=== PATIENT | female | born 1950 | race Caucasian/White ===

== ENCOUNTER → 2016-09-02 | Outpatient (CLI) | payer MEDICARE ==
--- NOTE | 2016-09-02 14:12 | BD ---
EXAMINATION TYPE: MG DEXA axial skeleton. DATE OF EXAM: 09/02/2016 1:18 PM COMPARISON: Prior DEXA bone scan August 20, 2012. CLINICAL HISTORY: OSTEOPENIA, postmenopausal female Height: 5'4 1/2 Weight: 134 FRAX RISK QUESTIONS: Alcohol (3 or more units per day): no Family History (Parent hip fracture): no Glucocorticoids (More than 3mos): yes (Ex: prednisone, prednisolone, methylprednisolone, dexamethasone, and hydrocortisone). History of Fracture in Adulthood: no Secondary Osteoporosis: 1. Type 1 Diabetes: no 2. Hyperthyroidism: no 3. Menopause before 45: no 4. Malnutrition: no 5. Chronic liver disease: no Rheumatoid Arthritis: no Current Tobacco Use: no RISK FACTORS HISTORY OF: Family History of Osteoporosis: yes Postmenopausal woman: MEDICATIONS: Prednisone or other steroids: How Lon months Additional Medications: asthma, Singulair, zyrtec resatisis Additional History: osteopenia EXAM MEASUREMENTS: Bone mineral densitometry was performed using the [employer] System. Bone mineral density as measured about the Lumbar spine is: ----- L1-L4(G/cm2): 0.969 T Score Values are as follows: ----- L2: -1.5 ----- L3: -2.2 ----- L4: -1.4 ----- L1-L4: -1.8 Bone mineral density has: Increased 0.5% since study of: 08/20/2012 Bone mineral density about the R hip (g/cm2): 0.732 Bone mineral density about the L hip (g/cm2): 0.704 T Score values are as follows: -----R Neck: -2.2 -----L Neck: -2.4 -----R Intertrochanter: -1.9 -----L Intertrochanter: -2.5 Bone mineral density has: Decreased -4.7% since study of: 08/20/2012 IMPRESSION: Osteopenia (T Score between -2.5 and -1 as noted by T score values: Redemonstrated in the low back an d both hips. Bone density slightly decreased or diminished in hips from prior study. There is slightl y increased risk of fracture and the patient may be considered for treatment. Re-Screen 1-2 years. NOTE: T-SCORE=SD OF THE YOUNG ADULT MEAN.
== END | disposition home or self-care (01) ==
LOC: RADBDWWP 12:46
PROVIDERS: ATTEND Obstetrics & Gynecology
DX: M85.80 Other specified disorders of bone density and structure, unspecified site (principal)
CPT/HCPCS: 77080

== ENCOUNTER 2017-10-15 09:14 | Day surgery (SDC) | payer MEDICARE ==
[2017-10-13 11:36] VITALS: BMI 22.8
[~2017-10-15 09:14] MED LIST: LACTATED RINGERS 1,000 ML IV SCH; LIDOCAINE 1% 20 ML VIAL (10MG/ML) FOR IV START INTRADERMA PRN
[2017-10-15 10:10] VITALS: TEMP 97.7
[2017-10-15] MEDS ORDERED: LIDOCAINE 1% 20 ML VIAL (10MG/ML) FOR IV START INTRADERMA ONE (10:17)
[2017-10-15] MEDS ORDERED: fentaNYL (PF) 50 MCG/ML 2 ML AMP ONE (10:47)
[2017-10-15] MEDS ORDERED: PROPOFOL 10 MG/ML 20 ML VIAL IV ONE (10:47)
[2017-10-15] MEDS ORDERED: LIDOCAINE 1% INJ 10MG/ML (20 ML MDV) ONE (10:47)
--- NOTE | 2017-10-15 11:18 | P.PCN ---
Date of Procedure: 10/15/17 Procedure(s) Performed: Procedure: Esophagogastroduodenoscopy and biopsy. Preoperative diagnosis: Shortness of breath and possible reflux disease. Postoperative diagnosis: 1. Small sliding hiatal hernia with no obvious esophagitis or complicated reflux disease. 2. Minimal antral gastritis and duodenitis. 3. Multiple biopsies obtained from the duodenum, antrum and esophagus. Preparation and sedation: Was provided by anesthesia. Brief clinical history: The patient is a 67-year-old female who is scheduled for this evaluation for the above reasons. The patient was evaluated in the office last month for possible GERD. She reported shortness of breath since the summer of 2015 and gurgling sensation in her throat and shortness of breath most recently when she eats or drink water. She also reported epigastric pain and occasional difficulty swallowing. No other alarm symptoms. The patient had cardiac evaluation in addition to her pulmonary evaluation before we proceeded with this exam today. Procedure: With the patient on her left lateral decubitus position and after informed consent and adequate sedation, I passed the Olympus-GIF 160 video upper endoscope through the cricopharyngeus down the esophagus. GE junction was around 40-41 cm from the incisors and there was a small sliding hiatal hernia. The esophagus did not show any obvious erosions, ulcers, strictures or Watts's esophagus. The endoscope was then passed into the stomach which was insufflated with air and inspected in detail including the retroflex view in the cardia. There was minimal mottling and erythema in the antrum but no ulcers or erosions. Pyloric channel did not show any ulcers. Duodenal bulb showed some erythema and minimal friability. Post bulbar area and descending duodenum appeared within normal limits. Because of her symptoms, I obtained biopsies from the duodenum, antrum and esophagus then the endoscope was withdrawn. The patient tolerated the procedure well. Plan: The patient was reassured. She will follow-up with you as planned. Will await pathology results and make further recommendations based on her course and biopsy results. I will keep you updated on her progress.
[2017-10-15 11:39] VITALS: BP 110/58; PULSE 55; RESP 16
== END 2017-10-15 11:58 | disposition home or self-care (01) ==
LOC: ORWHC2ENDO 09:14
DX: K29.50 Unspecified chronic gastritis without bleeding (principal); K44.9 Diaphragmatic hernia without obstruction or gangrene; K29.80 Duodenitis without bleeding; J45.909 Unspecified asthma, uncomplicated; K21.0 Gastro-esophageal reflux disease with esophagitis; Z79.83 Long term (current) use of bisphosphonates; Z79.899 Other long term (current) drug therapy
CPT/HCPCS: 88305; 43239; J2001; J3010; J2704

== ENCOUNTER → 2018-06-02 | Outpatient (CLI) | payer MEDICARE ==
--- NOTE | 2018-06-03 10:20 | MM ---
Reason for exam: screening (asymptomatic). Last mammogram was performed 2 years ago. History: Patient is postmenopausal. Benign left mammotome panel of the left breast, July 25, 2010. Benign right mammotome panel of the right breast, April 10, 2006. Benign excisional biopsy of the right breast, July 08, 2001. Took hormonal contraceptives for 8 years beginning at age 20. Physical Findings: A clinical breast exam by your physician is recommended on an annual basis and results should be correlated with mammographic findings. MG 3D Screening Mammo W/Cad Bilateral CC and MLO view(s) were taken. Prior study comparison: June 11, 2016, bilateral MG 3d screening mammo w/cad. September 13, 2013, bilateral digital screening mammo w/CAD. The breast tissue is heterogeneously dense. This may lower the sensitivity of mammography. There are benign appearing round vascular calcifications bilaterally. Previous mammotome biopsy in the right breast. There is no discrete abnormality. ASSESSMENT: Benign, BI-RAD 2 RECOMMENDATION: Routine screening mammogram of both breasts in 1 year.
== END | disposition home or self-care (01) ==
LOC: RADMAMWWP 10:20
PROVIDERS: ATTEND Obstetrics & Gynecology
DX: Z12.31 Encounter for screening mammogram for malignant neoplasm of breast (principal)
CPT/HCPCS: 77063; 77067

== ENCOUNTER → 2019-08-29 | Outpatient (CLI) | payer MEDICARE ==
--- NOTE | 2019-08-29 16:09 | BD ---
EXAMINATION TYPE: Axial Bone Density DATE OF EXAM: 08/29/2019 COMPARISON: NONE CLINICAL HISTORY: M 89.9 Height: 64.5 Weight: 140.4 FRAXIN RISK QUESTIONS: Alcohol (3 or more units per day): no Family History (Parent hip fracture): no Glucocorticoids (More than 3mos): no (Ex: prednisone, prednisolone, methylprednisolone, dexamethasone, and hydrocortisone). History of Fracture in Adulthood: no Secondary Osteoporosis: 1. Type 1 Diabetes: no 2. Hyperthyroidism: no 3. Menopause before 45: no 4. Malnutrition: no 5. Chronic liver disease: no Rheumatoid Arthritis: no Current Tobacco Use: no RISK FACTORS HISTORY OF: Family History of Osteoporosis: yes Active: yes Postmenopausal woman: age 53 MEDICATIONS: allergy meds, Restasis, Risedronate Additional History: EXAM MEASUREMENTS: Bone mineral densitometry was performed using the [employer] System. Bone mineral density as measured about the Lumbar spine is: ----- L1-L4(G/cm2): 0.980 T Score Values are as follows: ----- L2: -1.4 ----- L3: -2.0 ----- L4: -1.8 ----- L1-L4: -1.7 Bone mineral density has: decreased -1.1% since study of 09.02.2016 Bone mineral density about the R hip (g/cm2): 0.767 Bone mineral density about the L hip (g/cm2): 0.729 T Score values are as follows: -----R Neck: -1.9 -----L Neck: -2.2 -----R Total: -1.5 -----L Total: -2.0 Bone mineral density has: increased 3.1% since study of 09.02.2016 IMPRESSION: Osteopenia (T Score between -2.5 and -1). There is slightly increased risk of fracture and the patient may be considered for treatment. Re-Screen 2-5 years. NOTE: T-SCORE=SD OF THE YOUNG ADULT MEAN.
--- NOTE | 2019-08-31 10:59 | MM ---
Reason for exam: screening (asymptomatic). Last mammogram was performed 1 year and 3 months ago. History: Patient is postmenopausal and has history of other cancer at age 59. Benign left mammotome panel of the left breast, July 25, 2010. Benign right mammotome panel of the right breast, April 10, 2006. Benign excisional biopsy of the right breast, July 08, 2001. Took hormonal contraceptives for 8 years beginning at age 20. Physical Findings: A clinical breast exam by your physician is recommended on an annual basis and results should be correlated with mammographic findings. MG 3D Screening Mammo W/Cad Bilateral CC and MLO view(s) were taken. Prior study comparison: June 02, 2018, bilateral MG 3d screening mammo w/cad. June 11, 2016, bilateral MG 3d screening mammo w/cad. Previous mammotome biopsy in the right breast. There is chronic nodularity in the left lower inner quadrant. Benign vascular and oil cyst calcifications. Benign appearing grouped coarse calcifications on the right shows some interval increase. ASSESSMENT: Benign, BI-RAD 2 RECOMMENDATION: Routine screening mammogram of both breasts in 1 year.
== END | disposition home or self-care (01) ==
LOC: RADMAMWWP 15:10
PROVIDERS: ATTEND Obstetrics & Gynecology
DX: Z12.31 Encounter for screening mammogram for malignant neoplasm of breast (principal); M85.80 Other specified disorders of bone density and structure, unspecified site
CPT/HCPCS: 77063; 77067; 77080

== ENCOUNTER → 2020-09-18 | Outpatient (CLI) | payer MEDICARE ==
--- NOTE | 2020-09-19 10:21 | MM ---
Reason for exam: screening (asymptomatic). Last mammogram was performed 1 year and 1 month ago. History: Patient is postmenopausal and has history of other cancer at age 59. Benign left mammotome panel of the left breast, July 25, 2010. Benign right mammotome panel of the right breast, April 10, 2006. Benign excisional biopsy of the right breast, July 08, 2001. Took hormonal contraceptives for 8 years beginning at age 20. Physical Findings: A clinical breast exam by your physician is recommended on an annual basis and results should be correlated with mammographic findings. MG 3D Screening Mammo W/Cad Bilateral CC and MLO view(s) were taken. Prior study comparison: August 29, 2019, bilateral MG 3d screening mammo w/cad. June 02, 2018, bilateral MG 3d screening mammo w/cad. The breast tissue is heterogeneously dense. This may lower the sensitivity of mammography. Benign appearing bilateral calcifications, stable. Previous mammotome biopsy in the right breast. ASSESSMENT: Incomplete: need additional imaging evaluation, BI-RAD 0 RECOMMENDATION: Ultrasound of the left breast. [facility] will attempt to contact patient to return for ultrasound.
== END | disposition home or self-care (01) ==
LOC: RADMAMWWP 10:17
PROVIDERS: ATTEND Obstetrics & Gynecology
DX: Z12.31 Encounter for screening mammogram for malignant neoplasm of breast (principal)
CPT/HCPCS: 77063; 77067

== ENCOUNTER → 2020-10-05 | Outpatient (CLI) | payer MEDICARE ==
--- NOTE | 2020-10-05 11:17 | USB ---
Reason for exam: clinical finding. History: Patient is postmenopausal and has history of other cancer at age 59. Benign left mammotome panel of the left breast, July 25, 2010. Benign right mammotome panel of the right breast, April 10, 2006. Benign excisional biopsy of the right breast, July 08, 2001. Took hormonal contraceptives for 8 years beginning at age 20. Indicated problem(s): pain in the left breast. Physical Findings: Nurse Summary: generalized intermittent pain for years (nurse db). US Breast Workup LT Technologist: Sarah Beth Choudhary Left complete breast ultrasound includes all four quadrants, the retroareolar region and axilla. Finding demonstrates a 0.6 x 0.4 x 0.2cm oval lesion at 12 o'clock, a 0.5 x 0.4 x 0.3cm lymph node at 3 o'clock, a 0.6 x 1.0 x 0.4cm lobule versus debris filled cyst versus lesion like fibroadenoma at 1 o'clock, 6 month follow up recommended and a nodular and tubular structure at 7 o'clock measuring 1.7 x 0.4cm for which a biospy is recommended. These results were verbally communicated with the patient and result sheet given to the patient on 10/05/20. ASSESSMENT: Suspicious, BI-RAD 4 RECOMMENDATION: Ultrasound core biopsy of the left breast. (7 o'clock) Called Dr. Mensah's office with mammographic findings and has scheduled an appointment for the patient for 10/26/20 at 10:[address] Montes. Biopsy scheduled for 10/29/20 at 10:30. PRELIMINARY REPORT CALLED AND FAXED TO DR. MONTES ON 10/05/20.
== END | disposition home or self-care (01) ==
LOC: RADUSWWP 09:05
PROVIDERS: ATTEND Obstetrics & Gynecology
DX: R92.8 Other abnormal and inconclusive findings on diagnostic imaging of breast (principal)

== ENCOUNTER → 2020-10-26 | Outpatient (CLI) | payer MEDICARE ==
[2020-10-26 10:21] VITALS: BP 162/71; PULSE 80; RESP 18; TEMP 98.3
--- NOTE | 2020-10-26 10:42 | P.GSHP ---
History of Present Illness H&P Date: 10/26/20 Chief Complaint: abnormal left breast ultrasound Brynn is a 70-year-old white female seen in consultation for Dr. Mensah who underwent a bilateral screening mammogram on 09/18/2020. After this an ultrasound of the left breast was recommended and a 1.7 x 0.4 cm lesion was noted at the 7 o'clock position for which a core biopsy was recommended. Additional cystic lesions in the left breast and ultrasound were identified as well as a 0.6 x 1 cm lobule versus debris-filled cyst versus fibroadenoma at 1:00 for which six-month follow-up was recommended. She states she has nodular breast, and has noted some thickening at the 12 o'clock position of the left breast. She also has some discomfort in her left breast at this location. She states it was painful, for the last month and she stopped eating chocolate. She states her breasts have been tender for many year s, however recently the left breast lateral and upper outer area have been more tender. It feels like a bruised area. It is intermittent. It is worse with palpation. It is not spread any place. Since she stopped eating chocolate the pain improved. She denies trauma or infection of the breast. She has had prior bilateral breast biopsies which were benign. She had both open and needle biopsies. Caffeine: none nicotine: none chocolate: TATIANNA bars, daily stopped and decreased breast pain Family History: none Hormonal History: menarche: 14 , breast fed: yes, age at first : 29 menopause: 51 BCP: 7 years; hormones: none Surgical History: groin hernia Medical History: dry eyes mild heart murmur mild asthma Social History: nicotine: none alcohol: none drugs: none - Constitutional Constitutional: Denies chills, Denies fever - EENT Comment: dry eyes Eyes: denies blurred vision, denies pain Ears: deny: decreased hearing, tinnitus Ears, nose, mouth and throat: Denies headache, Denies sore throat - Cardiovascular Cardiovascular: Denies chest pain, Denies shortness of breath - Respiratory Respiratory: Denies cough, Denies 7 - Gastrointestinal Gastrointestinal: Denies abdominal pain, Denies diarrhea, Denies nausea, Denies vomiting - Genitourinary (Female) Genitourinary: Denies dysuria, Denies hematuria - Menstruation Menstruation: Reports postmenopausal - Musculoskeletal Musculoskeletal: Denies myalgias - Integumentary Comment: dry skin Integumentary: Denies pruritus, Denies rash - Neurological Neurological: Denies numbness, Denies weakness - Psychiatric Psychiatric: Denies anxiety, Denies depression - Endocrine Endocrine: Denies fatigue, Denies weight change - Hematologic/Lymphatic Comment: none - Allergic/Immunologic Allergic/Immunologic: Reports seasonal allergies Past Medical History Past Medical History: Asthma Additional Past Medical History / Comment(s): hx osteopenia, heart murmur History of Any Multi-Drug Resistant Organisms: None Reported Past Surgical History: Hernia Repair Additional Past Surgical History / Comment(s): breast biopsies 3 each breast pt states all benign Past Anesthesia/Blood Transfusion Reactions: Family History of Problems w/ Anesthesia Additional Past Anesthesia/Blood Transfusion Reaction / Comment(s): pts mother takes long time to wake from anesthesia Past Psychological History: No Psychological Hx Reported Smoking Status: Never smoker Past Alcohol Use History: Rare Past Drug Use History: None Reported - Past Family History Mother Family Medical History: No Reported History Medications and Allergies Home Medications Medication Instructions Recorded Confirmed Type cycloSPORINE 0.05% OPHTH SOLN 1 applicator BOTH EYES Q12H 18 10/16/20 History [Restasis] Allergies Allergy/AdvReac Type Severity Reaction Status Date / Time Iodinated Contrast Media Allergy Rash/Hives Verified 10/26/20 10:21 prochlorperazine Allergy Anaphylaxis Verified 10/26/20 10:21 [From Compazine] Surgical - Exam BMI 22.8 - General well developed, well nourished, no distress - Eyes normal ocular movement - ENT normal pinna, normal nares - Neck no masses, trachea midline - Respiratory normal expansion, normal respiratory effort, clear to auscultation - Cardiovascular Rhythm: regular Heart Sounds: normal: S1, S2 Abnormal Heart Sounds: systolic murmur - Abdomen Abdomen: soft - Integumentary normal turgor - Neurologic no disoriented, no combative - Musculoskeletal normal gait - Psychiatric oriented to time, oriented to person, oriented to place, speech is normal, memory intact breast exam: BRA: 34A inspection: grade 2 ptosis bilateral, mild invasion of the left nipple palpation: right breast: Multi-positional exam dense breast with fibrocystic changes no dominant masses or nodules of concern Right axilla: No adenopathy of concern Left breast: Multiple positional exam fibrocystic changes, dense breasts, particularly attention to the 7 o'clock position no discrete mass or nodule Left axilla: No adenopathy of concern Both breasts tender to palpation, greatest tenderness in the left breast lateral and upper outer quadrant area with palpation Results Mammogram and ultrasound results reviewed Assessment and Plan Assessment: Impression: 1. Fibrocystic breast changes 2. Abnormal left breast ultrasound 3. Mastodynia greatest left breast 4. Patient has decreased chocolate intake with improvement in mastodynia 5. Mild inversion left nipple Plan: 1. Ultrasound-guided core biopsy left breast/ repeat left breast ultrasound of the additional areas in 6 months 2. Continue lifestyle modifications/decreased chocolate and avoid caffeine products 3. Follow-up after ultrasound-guided core biopsy left breast 4. close surveillance of left nipple inversion CC: Dr. Mensah, Dr. Jara Encounter 30 minutes; time spent reviewing medical records, physical examination, and counseling. Risks and benefits of ultrasound-guided core biopsy discussed with the patient. Risks include but are not limited to bleeding, infection, reaction to the anesthetic. She understands and wishes to proceed. She will be seen post procedure.
== END ==
LOC: WWCWWP 10:09
PROVIDERS: ATTEND Surgery
DX: N60.12 Diffuse cystic mastopathy of left breast (principal); N60.11 Diffuse cystic mastopathy of right breast; N64.4 Mastodynia; N64.59 Other signs and symptoms in breast; J45.909 Unspecified asthma, uncomplicated

== ENCOUNTER → 2020-10-29 | Day surgery (SDC) | payer MEDICARE ==
[2020-10-29 12:37] VITALS: PULSE 74; RESP 16; TEMP 97.5
[2020-10-29 13:55] VITALS: BP 120/71
--- NOTE | 2020-10-29 15:18 | USB ---
EXAMINATION TYPE: US biopsy breast VAD LT, MG post biopsy diagnostic mammo LT wo CAD DATE OF EXAM: 10/29/2020 CLINICAL HISTORY: 70-year-old female referred for ultrasound-guided left breast biopsy. Incidentally found lesion during scanning for breast pain. R92.8 Abnormal Mammogram. TECHNIQUE: Ultrasound guided core biopsy of the left breast. COMPARISON: 10/05/2020 and 09/18/2020 FINDINGS: The procedure of ultrasound guided core biopsy was explained to the patient. Benefits, alternatives, and risks were discussed. An informed consent was then obtained. The questioned ectatic duct with internal debris or other internal material at the 7:00 position is identified and targeted for biopsy. The patient was placed in supine positioning for imaging and for the procedure. The overlying skin was prepped and draped in usual sterile fashion. Lidocaine was used as anesthetic into the skin and subcutaneous tissue up to area of concern in the 7:00 left breast. Under ultrasound guidance, a a 13-gauge vacuum-assisted mammotome biopsy gun was used to obtain 5 core samples. Following this, a coil clip was left in lesion. The patient tolerated the procedure well without any immediate complication. The patient was kept in the radiology department for short stay after the procedure and then discharged home in stable condition. Postprocedure mammogram shows the coil clip in place. IMPRESSION: Successful, uncomplicated ultrasound guided core biopsy of 7:00 left breast ectatic duct with internal debris or other intraluminal material incidentally found during scanning for breast pain; full pathology results to follow. Pathology Results: High Risk LEFT BREAST, 7:00 POSITION, CORE BIOPSY: Focal features compatible with atypical ductal hyperplasia (see note). Fibrocystic change and columnar cell change with florid usual ductal hyperplasia. Focal microcalcification present. Recommendation Surgical consult of the left breast. ARMINDAD
== END ==
LOC: RADUSWWP 11:53
PROVIDERS: ATTEND Surgery
DX: N60.12 Diffuse cystic mastopathy of left breast (principal); N60.92 Unspecified benign mammary dysplasia of left breast; N60.42 Mammary duct ectasia of left breast; R92.0 Mammographic microcalcification found on diagnostic imaging of breast
CPT/HCPCS: 88305; 88342; 77065; 19083; A4648; J2001

== ENCOUNTER → 2020-11-08 | Outpatient (CLI) | payer MEDICARE ==
[2020-11-08 08:51] VITALS: BP 148/73; PULSE 82; RESP 18; TEMP 98.1
--- NOTE | 2020-11-08 09:15 | P.PN ---
Subjective Progress Note Date: 11/08/20 Principal diagnosis: atypical ductal hyperplasia on core biopsy Brynn is a 70-year-old white female seen in consultation for Dr. Mensah who underwent a bilateral screening mammogram on 09/18/2020. After this an ultrasound of the left breast was recommended and a 1.7 x 0.4 cm lesion was noted at the 7 o'clock position for which a core biopsy was recommended. Additional cystic lesions in the left breast and ultrasound were identified as well as a 0.6 x 1 cm lobule versus debris-filled cyst versus fibroadenoma at 1:00 for which six-month follow-up was recommended. She states she has nodular breast, and has noted some thickening at the 12 o'clock position of the left breast. She also has some discomfort in her left breast at this location. She states it was painful, for the last month and she stopped eating chocolate. She states her breasts have been tender for many years, however recently the left breast lateral and upper outer area have been more tender. It feels like a bruised area. It is intermittent. It is worse with palpation. It is not spread any place. Since she stopped eating chocolate the pain improved. She denies trauma or infection of the breast. She has had prior bilateral breast biopsies which were benign. She had both open and needle biopsies. She underwent an ultrasound core biopsy on 10-29-20. This was positive for atypia. She does have some ecchymosis following the procedure with some discomfort. Caffeine: none nicotine: none chocolate: TATIANNA bars, daily stopped and decreased breast pain Family History: none Hormonal History: menarche: 14 , breast fed: yes, age at first : 29 menopause: 51 BCP: 7 years; hormones: none Surgical History: groin hernia Medical History: dry eyes mild heart murmur mild asthma Social History: nicotine: none alcohol: none drugs: none - Constitutional Constitutional: Denies chills, Denies fever - EENT Comment: dry eyes Eyes: denies blurred vision, denies pain Ears: deny: decreased hearing, tinnitus Ears, nose, mouth and throat: Denies headache, Denies sore throat - Cardiovascular Cardiovascular: Denies chest pain, Denies shortness of breath - Respiratory Respiratory: Denies cough, Denies 7 - Gastrointestinal Gastrointestinal: Denies abdominal pain, Denies diarrhea, Denies nausea, Denies vomiting - Genitourinary (Female) Genitourinary: Denies dysuria, Denies hematuria - Menstruation Menstruation: Reports postmenopausal - Musculoskeletal Musculoskeletal: Denies myalgias - Integumentary Comment: dry skin Integumentary: Denies pruritus, Denies rash - Neurological Neurological: Denies numbness, Denies weakness - Psychiatric Psychiatric: Denies anxiety, Denies depression - Endocrine Endocrine: Denies fatigue, Denies weight change - Hematologic/Lymphatic Comment: none - Allergic/Immunologic Allergic/Immunologic: Reports seasonal allergies Past Medical History Past Medical History: Asthma Additional Past Medical History / Comment(s): hx osteopenia, heart murmur History of Any Multi-Drug Resistant Organisms: None Reported Past Surgical History: Hernia Repair Additional Past Surgical History / Comment(s): breast biopsies 3 each breast pt states all benign Past Anesthesia/Blood Transfusion Reactions: Family History of Problems w/ Anesthesia Additional Past Anesthesia/Blood Transfusion Reaction / Comment(s): pts mother takes long time to wake from anesthesia Past Psychological History: No Psychological Hx Reported Smoking Status: Never smoker Past Alcohol Use History: Rare Past Drug Use History: None Reported Objective - Vital Signs Vital signs: Vital Signs Temp 98.1 F 11/08/20 08:48 Pulse 82 11/08/20 08:48 Resp 18 11/08/20 08:48 BP 148/73 11/08/20 08:48 Pulse Ox 99 11/08/20 08:48 Intake & Output 11/07/20 11/08/20 11/08/20 18:59 06:59 18:59 Weight 61.235 kg - Exam BMI 22.8 - Constitutional General appearance: Present: average body habitus - EENT Eyes: Present: EOMI ENT: Present: hearing grossly normal - Neck Neck: Present: normal ROM - Respiratory Respiratory: bilateral: CTA - Cardiovascular Rhythm: regular Heart sounds: normal: S1, S2 - Integumentary Integumentary Comment(s): Achymosis lower inner quadrant left breast related to prior biopsy No evidence of infection Small hematoma - Musculoskeletal Musculoskeletal: Present: gait normal - Psychiatric Psychiatric: Present: A&O x's 3, appropriate affect, intact judgment & insight Assessment and Plan Assessment: Impression: 1. Mild heart murmur 2. Dry eyes 3. Mild asthma 4. Core biopsy left breast ductal atypia Plan: 1. Needle localization excisional biopsy area of concern left breast, possible onco-plastic tissue transfer. 2. medical clearance DR. Jara CC; Dr. Mensah, Dr. Jara Risk and benefits of the procedure discussed with the patient and her . Risks include but are not limited to bleeding, infection, reaction to the anesthetic. She understands and wishes to proceed. Would not plan to do a mastopexy with this patient but possible onco-plastic tissue transfer.
== END ==
LOC: WWCWWP 08:41
PROVIDERS: ATTEND Surgery
DX: N60.92 Unspecified benign mammary dysplasia of left breast (principal); M85.80 Other specified disorders of bone density and structure, unspecified site; H04.123 Dry eye syndrome of bilateral lacrimal glands; J45.909 Unspecified asthma, uncomplicated; R01.1 Cardiac murmur, unspecified

== ENCOUNTER 2021-02-05 10:20 | Day surgery (SDC) | payer MEDICARE ==
[2021-01-29 13:19] VITALS: BMI 23.1
--- NOTE | 2021-01-31 11:24 | P.PN ---
Subjective Progress Note Date: 01/31/21 Principal diagnosis: atypia on core biopsy of the left breast atypical ductal hyperplasia on core biopsy Brynn is a 70-year-old white female seen in consultation for Dr. Mensah who underwent a bilateral screening mammogram on 09/18/2020. After this an ultrasound of the left breast was recommended and a 1.7 x 0.4 cm lesion was noted at the 7 o'clock position for which a core biopsy was recommended. Additional cystic lesions in the left breast and ultrasound were identified as well as a 0.6 x 1 cm lobule versus debris-filled cyst versus fibroadenoma at 1:00 for which six-month follow-up was recommended. She states she has nodular breast, and has noted some thickening at the 12 o'clock position of the left breast. She also has some discomfort in her left breast at this location. She states it was painful, for the last month and she stopped eating chocolate. She states her breasts have been tender for many years, however recently the left breast lateral and upper outer area have been more tender. It feels like a bruised area. It is intermittent. It is worse with palpation. It is not spread any place. Since she stopped eating chocolate the pain improved. She denies trauma or infection of the breast. She has had prior bilateral breast biopsies which were benign. She had both open and needle biopsies. She underwent an ultrasound core biopsy on 10-29-20. This was positive for atypia. She does have some ecchymosis following the procedure with some d iscomfort. Caffeine: none nicotine: none chocolate: TATIANNA bars, daily stopped and decreased breast pain Family History: none Hormonal History: menarche: 14 , breast fed: yes, age at first : 29 menopause: 51 BCP: 7 years; hormones: none Surgical History: groin hernia Medical History: dry eyes mild heart murmur mild asthma Social History: nicotine: none alcohol: none drugs: none - Constitutional Constitutional: Denies chills, Denies fever - EENT Comment: dry eyes Eyes: denies blurred vision, denies pain Ears: deny: decreased hearing, tinnitus Ears, nose, mouth and throat: Denies headache, Denies sore throat - Cardiovascular Cardiovascular: Denies chest pain, Denies shortness of breath - Respiratory Respiratory: Denies cough - Gastrointestinal Gastrointestinal: Denies abdominal pain, Denies diarrhea, Denies nausea, Denies vomiting - Genitourinary (Female) Genitourinary: Denies dysuria, Denies hematuria - Menstruation Menstruation: Reports postmenopausal - Musculoskeletal Musculoskeletal: Denies myalgias - Integumentary Comment: dry skin Integumentary: Denies pruritus, Denies rash - Neurological Neurological: Denies numbness, Denies weakness - Psychiatric Psychiatric: Denies anxiety, Denies depression - Endocrine Endocrine: Denies fatigue, Denies weight change - Hematologic/Lymphatic Comment: none - Allergic/Immunologic Allergic/Immunologic: Reports seasonal allergies Objective - Exam BM 22.8 - Constitutional General appearance: Present: average body habitus - EENT Eyes: Present: EOMI ENT: Present: hearing grossly normal - Neck Neck: Present: normal ROM - Respiratory Respiratory: bilateral: CTA - Cardiovascular Rhythm: regular - Integumentary Integumentary: Present: normal turgor - Musculoskeletal Musculoskeletal: Present: gait normal - Psychiatric Psychiatric: Present: A&O x's 3, appropriate affect, intact judgment & insight - Additional findings Additional findings: Breast exam: Patient had developed some ecchymosis lower inner quadrant left breast related to prior biopsy she had a small hematoma no evidence of infection Assessment and Plan Assessment: Impression: 1. Mild heart murmur 2. Dry eyes 3. Mild asthma 4. Core biopsy left breast ductal atypia Plan: 1. Needle localization excisional biopsy area of concern left breast, possible undergo plastic tissue transferred Medical clearance from Dr. Jara Risks and benefits of the procedure been discussed with the patient and her . Risks include but are not limited to bleeding, infection, reaction to the anesthetic. She understood and wished to proceed. We would not plan to do a mastopexy with this patient however a possible onco- plastic tissue transfer.
[~2021-02-05 10:20] MED LIST changes: +DEXAMETHASONE SOD PHOSPHATE 4 MG/ML 1 ML VIAL IV ONE; +HEPARIN SODIUM,PORCINE/PF 5,000 UNIT/0.5 ML SYRINGE SQ PRN; +HYDROmorphone 0.5 MG/0.5 ML SYRINGE IVP PRN; +LIDOCAINE 1% (10MG/ML) FOR IV START INTRADERMA PRN; -LIDOCAINE 1% 20 ML VIAL (10MG/ML) FOR IV START INTRADERMA PRN; +ONDANSETRON 4 MG/2 ML VIAL IVP ONE; +Pre Op ABX Message 1 EACH MISC MISCELLANE ONE
[2021-02-05] MEDS ORDERED: LIDOCAINE 1% INJ 10MG/ML (20 ML MDV) SQ ONE (11:54)
[2021-02-05] MEDS ORDERED: LIDOCAINE 1% INJ 10MG/ML (20 ML MDV) ONE (12:41)
[2021-02-05] MEDS ORDERED: SUCCINYLCHOLINE CHLORIDE 100 MG/5 ML SYR IV ONE (12:41)
[2021-02-05] MEDS ORDERED: fentaNYL (PF) 50 MCG/ML 2 ML AMP ONE (12:41)
[2021-02-05] MEDS ORDERED: PHENYLEPHRINE-0.9% NACL SYG 1,000 MCG/10 ML SYRINGE ONE (12:41)
[2021-02-05] MEDS ORDERED: ROCURONIUM 10 MG/ML (5 ML VIAL) IV ONE (12:41)
[2021-02-05] MEDS ORDERED: PROPOFOL 10 MG/ML 20 ML VIAL IV ONE (12:41)
[2021-02-05] MEDS ORDERED: MIDAZOLAM 2 MG/2 ML VIAL ONE (12:41)
--- NOTE | 2021-02-05 13:52 | P.OP ---
Date of Procedure: 02/05/21 Preoperative Diagnosis: atypia core biopsy left breast Postoperative Diagnosis: same Procedure(s) Performed: needle Localization excisional biopsy left breast Anesthesia: CAMILO Surgeon: Allison Montes Estimated Blood Loss (ml): 2 IV fluids (ml): 400 Pathology: other (Breast tissue) Condition: stable Disposition: same day Indications for Procedure: core biopsy left breast with atypia Operative Findings: Fibrofatty breast tissue Description of Procedure: The patient is a 71-year-old white female underwent a core biopsy of the left breast which showed atypia. She was recommended to undergo a needle localization and excisional lumpectomy. Following needle localization of the area of concern the patient was brought to the operative suite. Following induction of anesthesia the left breast was prepped and draped in a sterile fashion. An incision was made and carried down to the tip of the needle. The specimen was 6 x 3 cm. This was excised and sent for radiographic evaluation after been painted for orientation. Titanium clips were placed to hilda the cavity. Superiorly the tissue was mobilized 4 cm x 2 cm and inferiorly 4 cm x 1 cm. A total tissue mobilization of 30 centimeters squared was performed. The dissection was down to the pectoralis muscle. After we were assured that hemostasis was attained the tissues were closed in layers using 3-0 Vicryl suture. Skin was closed using 4-0 Monocryl. Patient tolerated the procedure in stable condition.
--- NOTE | 2021-02-05 13:54 | P.DS ---
Providers Attending physician: Allison Montes Primary care physician: Charles Jara Plan - Discharge Summary Discharge Rx Participant: No New Discharge Prescriptions: No Action cycloSPORINE 0.05% OPHTH SOLN [Restasis] 1 applicator BOTH EYES Q12H ALPRAZolam [Xanax] 0.25 mg PO DAILY PRN PRN Reason: Anxiety Cetirizine HCl [Zyrtec] 10 mg PO DAILY Kashif/D3/Mag11/Zinc/Material Handling Crew Supervisor/Albert/Bor [Caltrate 600+D Plus Tablet] 1 each PO DAILY Discharge Medication List cycloSPORINE 0.05% OPHTH SOLN [Restasis] 1 applicator BOTH EYES Q12H 10/13/17 [History] Cetirizine HCl [Zyrtec] 10 mg PO DAILY 10/29/20 [History] Kashif/D3/Mag11/Zinc/Material Handling Crew Supervisor/Albert/Bor [Caltrate 600+D Plus Tablet] 1 each PO DAILY 11/08/20 [History] ALPRAZolam [Xanax] 0.25 mg PO DAILY PRN 01/29/21 [History] Follow up Appointment(s)/Referral(s): Allison Montes MD [STAFF PHYSICIAN] - 1 Week Activity/Diet/Wound Care/Special Instructions: may shower after 48 hours wear bra at all times do not drive for 24 hours after discharge or if taking narcotic pain medication Discharge Disposition: HOME SELF-CARE
[2021-02-05 14:12] VITALS: TEMP 97
--- NOTE | 2021-02-05 14:41 | MM ---
EXAMINATION TYPE: MG pre op needle loc LT, MG surgical specimen LT DATE OF EXAM: 02/05/2021 COMPARISON: 10/29/2020 CLINICAL HISTORY: Atypical ductal hyperplasia of the left breast TECHNIQUE: Needle localization with wire placement and surgical excision of area of concern in the left breast. FINDINGS: The procedure of needle localization with wire placement and than surgical excision was explained to the patient. Benefits, alternatives, and risks were discussed. An informed consent was then obtained. The shortest pathway for procedure was chosen. Shortest pathway was medial approach. The overlying skin was prepped and draped in usual sterile fashion. Lidocaine buffered with bicarbonate was used as anesthetic into the skin and subcutaneous tissue up to the level of area of concern. A 7 cm needle was used. It was placed via a medial approach under mammographic guidance. Subsequent 90 degrees mammogram show the needle to be in satisfactory position relative to the targeted area. At this point, wire was placed and the needle was withdrawn. The wire was fixed to patient's skin. Images were marked for surgeon. The patient tolerated the procedure well without any immediate complication. The patient was kept in the radiology department for short stay after the procedure and then taken to surgery for surgical excision. Targeted clip and wire are identified in specimen mammogram. The patient was kept in hospital for short stay after the procedure and then discharged home in stable condition. IMPRESSION: Successful, uncomplicated needle localization with wire placement and surgical excision of clip in the left breast, full pathology results to follow. Pathology Results: Benign LEFT BREAST, NEEDLE LOCALIZATION EXCISION: Proliferative fibrocystic changes including moderate to florid usual type ductal hyperplasia, radial scar, cysts, fibrosis, columnar cell change/columnar cell hyperplasia, apocrine metaplasia and calcifications. Duct ectasia and previous biopsy site. See note. Recommendation Follow up mammogram of the left breast in 6 months. SEBASTIÁN
[2021-02-05 15:07] VITALS: RESP 18
[2021-02-05 15:12] VITALS: BP 123/88; PULSE 65
== END 2021-02-05 15:36 | disposition home or self-care (01) ==
LOC: OR 10:20
PROVIDERS: ATTEND Surgery
DX: N60.12 Diffuse cystic mastopathy of left breast (principal); N62 Hypertrophy of breast; N60.82 Other benign mammary dysplasias of left breast; R92.1 Mammographic calcification found on diagnostic imaging of breast; H04.129 Dry eye syndrome of unspecified lacrimal gland; R01.1 Cardiac murmur, unspecified; J45.909 Unspecified asthma, uncomplicated; Z79.899 Other long term (current) drug therapy; J30.2 Other seasonal allergic rhinitis; Z88.8 Allergy status to other drugs, medicaments and biological substances; Z91.041 Radiographic dye allergy status
CPT/HCPCS: 19125; 88342; 88307; 88341; 76098; 19281; J2250; J1100; J2405; J2001; J3010; J2370; J0330; J2704; J1644

== ENCOUNTER → 2021-02-14 | Outpatient (CLI) | payer MEDICARE ==
--- NOTE | 2021-02-14 12:21 | P.PN ---
Progress Note - Text Progress Note Date: 02/14/21 Brynn is a 71 -year-old white female status post needle localization and excisional biopsy [place] [id number]. Pathology revealed proliferative fibrocystic changes including moderate to florid usual type ductal hyperplasia, radial scar, cysts, fibrosis, columnar cell change, apocrine metaplasia and calcifications. The patient post procedure well. Physical Exam: Lungs clear Heart: S1-S2 Incision: Clean and dry echymosis inferior aspect of left breast resolving Impression: 1. Benign left breast open biopsy 2. Resolving ecchymosis Plan: 1. Repeat left breast mammogram in 6 months with position exam at that time CC: Dr. Jara
[2021-02-14 13:18] VITALS: BP 133/72; PULSE 95; RESP 18; TEMP 98.2
== END ==
LOC: WWCWWP 12:13
PROVIDERS: ATTEND Surgery
DX: R58 Hemorrhage, not elsewhere classified (principal); Z98.890 Other specified postprocedural states; Z91.041 Radiographic dye allergy status; Z88.8 Allergy status to other drugs, medicaments and biological substances

== ENCOUNTER → 2021-08-16 | Outpatient (CLI) | payer MEDICARE ==
--- NOTE | 2021-08-16 12:20 | MM ---
Reason for exam: follow-up at short interval from prior study. Last mammogram was performed 10 months ago. History: Patient is postmenopausal, has history of high-risk lesion on a previous biopsy at age 70, and has history of other cancer at age 59. Benign MG pre op needle loc LT of the left breast, February 05, 2021. High risk US biopsy breast VAD LT of the left breast, October 29, 2020. Benign left mammotome panel of the left breast, July 25, 2010. Benign right mammotome panel of the right breast, April 10, 2006. Benign excisional biopsy of the right breast, July 08, 2001. Took hormonal contraceptives for 8 years beginning at age 20. Physical Findings: Nurse did not find any significant physical abnormalities on exam. MG 3D Diag Mammo W/Cad CANDY Bilateral CC and MLO view(s) were taken. Prior study comparison: October 29, 2020, left breast MG diagnostic mammo LT wo CAD. September 18, 2020, bilateral MG 3d screening mammo w/cad. The breast tissue is heterogeneously dense. This may lower the sensitivity of mammography. There are benign appearing round vascular calcifications bilaterally. There is no discrete abnormality. These results were verbally communicated with the patient and result sheet given to the patient on 08/16/21. ASSESSMENT: Benign, BI-RAD 2 RECOMMENDATION: Routine screening mammogram of both breasts in 1 year.
== END | disposition home or self-care (01) ==
LOC: RADMAMWWP 10:50
PROVIDERS: ATTEND Surgery
DX: R92.8 Other abnormal and inconclusive findings on diagnostic imaging of breast (principal); Z78.0 Asymptomatic menopausal state
CPT/HCPCS: 77066; G0279; 77062

== ENCOUNTER → 2023-10-21 | Outpatient (CLI) | payer MEDICARE ==
--- NOTE | 2023-10-22 00:14 | MM ---
Reason for Exam: Screening (asymptomatic). Last mammogram was performed 1 year(s) and 1 month(s) ago. Patient History: Menarche at age 14. First Full-Term at age 29. Postmenopausal. Other cancer, age 59. Currently using Estrogen, starting at age 72. Hormonal Contraceptives for 8 years from age 20 until age 28. 02/05/2021, Benign Core Biopsy on the left side. 10/29/2020, High risk Core Biopsy on the left side. 07/25/2010, Benign Core Biopsy on the left side. 04/10/2006, Benign Core Biopsy on the right side. 07/08/2001, Benign Excisional Biopsy on the right side. Risk Values: Estella 5 year model risk: 2.9%. NCI Lifetime model risk: 7.5%. Prior Study Comparison: 10/29/2020 Left Diagnostic Mammogram, [facility]. 08/16/2021 Bilateral Diagnostic Mammogram, [facility]. 08/29/2022 Bilateral MG 3D screening mammo w/cad, [facility]. Tissue Density: The breasts are heterogeneously dense, which may obscure small masses. Findings: Analyzed By CAD. The pattern is symmetrical. Pattern is stable. No significant interval change is evident. Scattered benign vascular and coarse calcifications are present a core marker is within the right breast No suspicious groups of microcalcifications, spiculated or lobular masses, architectural distortion or other secondary signs of malignancy are mammographically apparent. Overall Assessment: Benign, BI-RAD 2 Management: Screening Mammogram of both breasts in 1 year. A negative mammogram report should not preclude additional follow up of suspicious palpable abnormalities. Patient should continue monthly self breast exam. A clinical breast exam by your physician is recommended on an annual basis and results should be correlated with mammographic findings. Electronically signed and approved by: Jimmie Rivera D.O. Radiologis
== END | disposition home or self-care (01) ==
LOC: RADMAMWWP 10:40
PROVIDERS: ATTEND Family Medicine
DX: Z12.31 Encounter for screening mammogram for malignant neoplasm of breast (principal); Z78.0 Asymptomatic menopausal state
CPT/HCPCS: 77063; 77067